=== PATIENT | male | born 1995 | race Caucasian/White ===

== ENCOUNTER 2023-12-26 22:52 | Emergency (ER) | payer OTHER ==
[~2023-12-26] VITALS: Ht 172.7 cm; Wt 108.9 kg
[2023-12-26] MEDS ORDERED: ALBUTEROL SULFATE/IPRATROPIU 3 ML SOL IH ONE (23:14)
[2023-12-26 23:19] VITALS: BP 161/107; PULSE 124; RESP 24; TEMP 98; O2SAT 98
[2023-12-26] MEDS: ALBUTEROL 0.083% 2.5 MG/3 ML NEBU INH ONE (23:34)
[2023-12-26 23:51] VITALS: PULSE 93; RESP 26; O2SAT 100
[2023-12-26 23:52] VITALS: PULSE 90; RESP 24; O2SAT 100
[2023-12-27] MEDS ORDERED: ALUMINUM HYD/MAG/SIMETHICONE 30 ML UDC ONE (00:07)
[2023-12-27] MEDS ORDERED: DICYCLOMINE HCL LIQUID 10 MG/5 ML UDC ONE (00:08)
[2023-12-27] MEDS: DICYCLOMINE HCL LIQUID 20 MG, ALUMINUM HYD/MAG/SIMETHICONE 30 ML, LIDOCAINE VISCOUS 2% ... PO ONE (00:09)
[2023-12-27 00:50] VITALS: O2SAT 100
[2023-12-27 00:54] LABS: ANION GAP 15.7 (8-16); CARBON DIOXIDE 24.7 mmol/L (21-32); CREATININE 1.2 mg/dL (0.6-1.3); POTASSIUM 3.4 mmol/L (3.5-5.1)
[2023-12-27 00:58] LABS: BASOPHILS # (AUTO) 0.1 K/uL (0.00-0.22); BASOPHILS % (AUTO) 0.9 % (0.0-2.0); EOSINOPHILS # (AUTO) 0.1 K/uL (0-0.4); EOSINOPHILS % (AUTO) 0.7 % (0.0-4.0); HEMATOCRIT 43.9 % (36-52); HEMOGLOBIN 15.4 g/dL (12.0-18.0); LYMPHOCYTES # (AUTO) 2.4 K/uL (2.0-11.5); LYMPHOCYTES % (AUTO) 28.7 % (20.5-51.1); MEAN CORPUSCULAR HEMOGLOBIN 31 pg (27-31); MEAN CORPUSCULAR HGB CONC 35 g/dL (33-37); MEAN CORPUSCULAR VOLUME 88.6 fL (80-94); MONOCYTES # (AUTO) 0.7 K/uL (0.8-1.0); MONOCYTES % (AUTO) 7.8 % (1.7-9.3); NEUTROPHILS # (AUTO) 5.2 K/uL (1.8-7.7); NEUTROPHILS % (AUTO) 61.9 % (42.2-75.2); PLATELET COUNT (AUTO) 311 K/uL (140-450); RED BLOOD CELL COUNT(AUTO) 4.96 MIL/uL (4.20-6.10); RED CELL DISTRIBUTION WIDTH 12.9 % (11.6-13.7); WHITE BLOOD COUNT (AUTO) 8.4 K/uL (4.8-10.8)
[2023-12-27 01:03] LABS: ALANINE AMINOTRANSFERASE 63 U/L (12-78); ALKALINE PHOSPHATASE 70 U/L (50-136); ASPARTATE AMINOTRANSFERASE 23 U/L (15-37); BILIRUBIN,DIRECT 0.2 mg/dL (0.0-0.3); TOTAL BILIRUBIN 0.7 mg/dL (0.0-1.0); TOTAL PROTEIN, SERUM 7.7 g/dL (6.4-8.2)
[2023-12-27 01:09] LABS: INR 1.05 (0.8-1.2); PARTIAL THROMBOPLASTIN TIME 24.4 secs (22-35.6)
[2023-12-27 02:46] VITALS: O2SAT 100
[2023-12-27] MEDS: NACL 0.9% 1,000 ML IV ONE (04:16)
[2023-12-27] MEDS: methylPREDNISolone SS 125 MG/2 ML VIAL IVP ONE (04:23)
[2023-12-27] MEDS: KETOROLAC 30 MG/ML VIAL IVP ONE (04:23)
[2023-12-27 05:04] VITALS: O2SAT 100
[2023-12-27] MEDS ORDERED: ALBU0.0912 IH (05:48)
[2023-12-27] MEDS ORDERED: PRED20TA5 PO (05:48)
[2023-12-27 06:03] VITALS: BP 127/69; PULSE 81; RESP 18; TEMP 98; O2SAT 100
== END 2023-12-27 06:04 | disposition home or self-care (01) ==
LOC: MED 22:52
DX: I45.10 Unspecified right bundle-branch block (principal); R10.13 Epigastric pain; R07.89 Other chest pain; J45.909 Unspecified asthma, uncomplicated; G47.30 Sleep apnea, unspecified; Z79.899 Other long term (current) drug therapy
CPT/HCPCS: 36415; 71045; 71275; 80048; 80076; 83880; 84484; 85025; 85379; 85610; 85730; 93005; 94640; 96374; 96375; 99285; J1885; J2919; J7030; J7613; Q9967